=== PATIENT | male | born 1955 | race Caucasian/White ===

== ENCOUNTER 2018-11-13 09:29 | Emergency (ER) | payer OTHER ==
--- NOTE | 2018-11-13 10:27 | ER ---
HISTORY OF PRESENT ILLNESS: A 63-year-old male here after sustaining a laceration to the distal end of the right 3rd finger. This happened yesterday afternoon while he was cleaning fish. The patient states he dropped the knife and it hit the end of his finger. He is on Xarelto and has been having some problems with it trying to get it to stop bleeding. The patient states that he did have it covered with a dressing 2 or 3 times, but when he bumped it, it would soak through. Finally, this morning, he decided that he would come in for further evaluation. The patient states he feels fine. He is on Xarelto because of history of blood clots. Most of them were superficial in his legs, but one did end up being a deep vein clot. He is a truck packer. OBJECTIVE: GENERAL APPEARANCE: The patient is awake and alert. No obvious distress. He is pleasant and talkative. VITAL SIGNS: Reviewed. Blood pressure is elevated at approximately 190/100. The patient states he did not take his blood pressure medicine this morning. He thought it might make him bleed more. EXTREMITIES: Examining the right 3rd finger reveals a laceration across the pad of the finger that is about 1.5 cm in length. The wound edges are clean and sharp. It just goes through the epidermis and minimally into the subcu tissue. There is no bleeding at this time, but there is dried blood around the laceration. DIAGNOSIS: Laceration to right 3rd finger. TREATMENT PLAN: The site was cleansed once more. We applied Surgicel and in turn cover this with Nhan and Coban creating a pressure dressing. The patient is to keep this on until at least tomorrow. He is to change it sooner if it becomes dirty or soiled. I advised the patient to try to keep this hand dry. His blood pressure was rechecked with a reading of 188/95. I advised the patient to take his blood pressure medicine as soon as he gets back to where he is staying. He is current on his tetanus. He is to monitor for infection. Followup is p.r.n. DAMION/NICOLE /[id number]
== END 2018-11-13 09:53 | disposition home or self-care (01) ==
LOC: LB.ED 09:29
DX: S61.212A Laceration without foreign body of right middle finger without damage to nail, initial encounter (principal); W26.0XXA Contact with knife, initial encounter
CPT/HCPCS: 99283